=== PATIENT | male | born 1970 | race Caucasian/White ===

== ENCOUNTER 2016-09-24 13:47 | Emergency (ER) | payer SELFPAY ==
[2016-09-24] MEDS ORDERED: DIAZEPAM 5 MG/ML DISP.SYRIN IM ONE (14:07)
--- NOTE | 2016-09-24 15:19 | Diagnostic Imaging Report ---
[facility] [id number] [facility].[address] [id number] Report Submission Date: Sep 24, 2016 3:02:23 PM WHISKEY REGAUGER Patient Study Name: AILEEN VO Date: Sep 24, 2016 2:47:20 PM WHISKEY REGAUGER Modality Type: CR Gender: M Description: SPINE : 74 Institution: [facility] Physician DORI QUEEN - HUEY Lumbar spine -three views CLINICAL HISTORY: Lifting injury. Back pain radiating to the right lower extremity. FINDINGS: Examination of the lumbar spine in AP, lateral and lateral coned-down views demonstrates the vertebrae to be anatomically aligned. Pedicles are intact and the paravertebral soft tissues are within normal limits. Spina bifida occulta is incidentally noted at L5. There are small anterior osteophytes at L4 and L5. IMPRESSION: Mild spondylosis. Spina bifida occulta at L5. No fracture. Electronically signed on Sep 24, 2016 3:02:23 PM WHISKEY REGAUGER by: Timoteo GARZON
--- NOTE | 2016-09-24 15:31 | ED Physician Documentation ---
General Adult - HISTORIAN Historian: patient - HPI Stated Complaint: back pain Chief Complaint: General Adult Onset: hours Timing: still present Severity: moderate Further Comments: yes (Pt is a 45 yo male who was moving an upright piano with a friend when he felt something give in his back. Pt has LBP and some pain in R leg.) - ROS CONST: no problems EYES/ENT: none CVS/RESP: none GI/: none MS/SKIN/LYMPH: back pain - PAST HX Past History: other (orthopedic surgery) Allergies/Adverse Reactions: Allergies Allergy/AdvReac Type Severity Reaction Status Date / Time ketorolac tromethamine Allergy Hives Verified 09/24/16 13:57 [From Toradol] meperidine HCl [From Demerol] Allergy Hives Verified 09/24/16 13:57 esomeprazole magnesium AdvReac Tongue Verified 09/24/16 13:57 [From Nexium] Swelling Home Medications: Ambulatory Orders Medication Instructions Recorded NK [NK] 09/24/16 - SOCIAL HX Smoking History: cigarettes - FAMILY HX Family History: No - VITAL SIGNS Vital Signs: Vital Signs Temp Pulse Resp BP Pulse Ox 98.2 F 96 H 18 131/62 99 09/24/16 14:01 09/24/16 14:01 09/24/16 14:01 09/24/16 14:01 09/24/16 14:01 - REVIEWED ASSESSMENTS Nursing Assessment Reviewed: Yes Vitals Reviewed: Yes Progress - Progress Progress: X-ray L-spine: Mild spondylosis. Spina bifida occulta at L5. No fracture. Diazepam 10 mg IM [facility] (5/325) 1 tab po in ER. Rx [facility] (5/325). 1-2 po q 4-6h prn #15. ED Results Lab/Radiology - Orders Orders: ED Orders Category Date Time Status LUMBAR SPINE XR 2 OR 3 VIEWS [L SPINE 2 OR 3 VIEWS] [ Exams 09/24/16 Completed RAD] Stat Diazepam [Valium] Med 09/24/16 14:07 Discontinued 10 mg IM NOW ONE General Adult Physical Exam - PHYSICAL EXAM GENERAL APPEARANCE: moderate distress EENT: eye inspection normal NECK: normal inspection, supple RESPIRATORY: no resp distress, chest non-tender, breath sounds normal CVS: reg rate & rhythm, heart sounds normal BACK: normal inspection, other (muscle spasm) SKIN: warm/dry, normal color EXTREMITIES: non-tender, normal range of motion, no evidence of injury, other ( DTR's wnl) NEURO: oriented X3, motor nml Discharge Clincal Impression: Back pain Qualifiers: Back pain location: low back pain Chronicity: acute Back pain laterality: unspecified Sciatica presence: unspecified whether sciatica present Qualified Code(s): M54.5 - Low back pain Referrals: Primary Doctor,No [Primary Care Provider] - Home Medications: Ambulatory Orders NK [NK] 09/24/16 Condition: Good Disposition: HOME, SELF-CARE Decision to Admit: NO Decision Time: 16:31
[2016-09-24] MEDS ORDERED: HYDROcodone /APAP 5/325 1 EACH TABLET PO ONE (15:34)
[2016-09-24 16:41] VITALS: BP 128/62
== END 2016-09-24 16:40 | disposition home or self-care (01) ==
LOC: ED 13:47
DX: M54.5 Low back pain (principal)
CPT/HCPCS: 72100; A9270; J3360; 90471; 99283